=== PATIENT | male | born 1980 | race Caucasian/White ===

== ENCOUNTER → 2017-01-20 | Outpatient (CLI) | payer BC | LOC: M SMT 15:21 | PROVIDERS: ATTEND Physician Assistant Medical | DX: R19.7 Diarrhea, unspecified (principal) ==

== ENCOUNTER → 2020-05-26 | Outpatient (REF) | LOC: M LABSMTC 09:44 | PROVIDERS: ATTEND Pediatrics | DX: Z11.52 Encounter for screening for COVID-19 (principal) ==

== ENCOUNTER → 2020-05-29 | Outpatient (REF) | LOC: M EMP 13:46 | PROVIDERS: ATTEND Family Medicine | DX: Z11.52 Encounter for screening for COVID-19 (principal) ==

== ENCOUNTER → 2021-02-06 | Outpatient (REF) | payer BC | LOC: M LAB REF 19:45 | PROVIDERS: ATTEND Family Medicine | DX: J02.9 Acute pharyngitis, unspecified (principal) ==

== ENCOUNTER → 2021-02-07 | Outpatient (REF) | LOC: M EMP 07:40 | PROVIDERS: ATTEND Family Medicine | DX: Z11.52 Encounter for screening for COVID-19 (principal) ==